=== PATIENT | female | born 1995 | race Two or more races ===

== ENCOUNTER 2019-08-14 20:01 | Emergency (ER) | payer SELFPAY ==
[~2019-08-14] VITALS: Ht 160 cm; Wt 93.0 kg
[2019-08-15] MEDS ORDERED: HYDROCODONE/ACETAMINOPHEN 5/325MG TABLET PO ONE (00:45)
[2019-08-15 02:15] VITALS: BP 123/65
== END 2019-08-15 02:15 | disposition home or self-care (01) ==
LOC: ER 20:01
DX: N75.0 Cyst of Bartholin's gland (principal); Z90.49 Acquired absence of other specified parts of digestive tract; Z88.5 Allergy status to narcotic agent
CPT/HCPCS: 99283

== ENCOUNTER 2020-08-13 19:12 | Emergency (ER) | payer MEDICAID ==
[~2020-08-13] VITALS: Ht 160 cm; Wt 91.0 kg
[2020-08-13 20:39] LABS: CHLORIDE 103 mEq/L (98-107)
[2020-08-13 20:40] LABS: BASOPHILS % 0.3 % (0.0-2.0); EOSINOPHILS % 0.7 % (0.0-5.0); HEMATOCRIT. 37.6 % (36.0-48.0); HEMOGLOBIN. 12.2 g/dL (12.0-16.0); LYMPHOCYTES % 19.3 % (20.0-50.0); MEAN CORPUSCULAR HEMOGLOBIN 25.4 pg (28.0-32.0); MEAN CORPUSCULAR VOLUME 78.4 fL (81.0-99.0); MEAN PLATELET VOLUME 7.7 fl (7.4-10.4); NEUTROPHILS % 76.7 % (40.0-76.0); PLATELET 385 x1000/uL (130-400); RED BLOOD CELL COUNT 4.79 mill/uL (4.2-5.4); RED CELL DISTRIBUTION WIDTH 14.4 % (11.6-14.6)
[2020-08-13] MEDS ORDERED: SODIUM CHLORIDE 0.9% 1,000 ML IV ONE (22:45)
[2020-08-13] MEDS ORDERED: IOHEXOL-350 100 ML BOTTLE ONE (23:29)
[2020-08-14 00:30] VITALS: BP 109/61
== END 2020-08-14 00:48 | disposition home or self-care (01) ==
LOC: ER 19:12
DX: R07.89 Other chest pain (principal); Z88.6 Allergy status to analgesic agent; Z90.49 Acquired absence of other specified parts of digestive tract
CPT/HCPCS: 36415; 71045; 71275; 80053; 81025; 84484; 85025; 85379; 93005; 96360; 99285; Q9967